=== PATIENT | male | born 1975 | race Caucasian/White ===

== ENCOUNTER 2025-06-26 12:45 | Emergency (ER) | payer BC, SELFPAY ==
--- NOTE | 2025-06-26 12:52 | EKG_ITS ---
[facility] Test Date: 2025-06-26 Pat Name: SHERRI MARISCAL Department: Room: - Gender: Male [employer]: : 1975 Requested By: Tierney Anne Order Number: [id number] Reading MD: Tierney Anne Measurements Intervals [place] Rate: 123 P: 57 DE: 125 QRS: -23 QRSD: 90 T: 56 QT: 304 QTc: 436 Interpretive Statements SINUS TACHYCARDIA BORDERLINE LEFT AXIS DEVIATION [QRS AXIS < -20] POSSIBLE RIGHT VENTRICULAR CONDUCTION DELAY [RSR (QR) IN V1/V2] ABNORMAL RHYTHM ECG Compared to ECG 09/19/2023 22:09:28 No significant changes /store/S0/[id number].pdf
[2025-06-26 12:56] VITALS: BP 129/80; PULSE 121; RESP 19; TEMP 36.6; O2SAT 96
--- NOTE | 2025-06-26 13:08 | EDNOTE_ITS ---
<Statement entered by Tiereny Flores MD - 06/26/25 16:19> As co-signing physician, I was present and available for consult prn. I concur with the plan and care as documented by the midlevel provider. ED Arrhythmia Palp. RME/HPI General Chief Complaint: Arrhythmia/Palpitations Stated Complaint: Withdrawing ETOH, palpitations and SOB Time Seen by Provider: 06/26/25 13:08 Source: patient Arrival date/time: 06/26/25 12:45 Mode of arrival: ambulatory Limitations: no limitations RME / HPI RME / HPI narrative: 50-year-old male who tells me that he had been binging on alcohol and then suddenly stopped yesterday and developed nausea with vomiting. Denies abdominal pain. Shows concern for rapid heart rate as well as sweating. MD complaint: rapid heart beat and heart racing Onset (ago): day(s) (2 days) Duration: constant Severity: moderate Context: occurred during rest Related Data Previous Rx's ?Medication ?Instructions ?Recorded meclizine 50 mg tablet 50 mg PO BID PRN dizziness # 20 tabs 05/07/23 cephalexin 500 mg tablet 500 mg PO TID #21 tabs 06/29 chlordiazepoxide HCl 25 mg capsule 25 mg PO BID #14 ca ps 06/29/23 cephalexin 500 mg capsule 500 mg PO Q8H #21 caps 06/26 Allergies Allergy/AdvReac Type Severity Reaction Status Date / Time No Known Allergies Allergy Verified 06/26/25 12:50 Review of Systems Constitutional Constitutional: Reports system reviewed and no additional complaints, except as documented Eyes Eyes: Reports system reviewed and no additional complaints, except as documented, Denies dry eyes, Denies exophthalmos and Reports floaters Cardiovascular Cardiovascular: Denies chest pain with activity and Denies claudication ED Exam General Limitations: Present no limitations General appearance: Present alert and in no apparent distress Head Head exam: Present atraumatic Eye Eye exam: Present normal appearance and EOMI ENT ENT exam: Present normal exam, normal oropharynx and mucous membranes moist Neck Neck exam: Present normal inspection, full ROM and trachea midline Chest Chest inspection: Present normal inspection and symmetric chest wall rise Respiratory Respiratory exam: Present normal lung sounds bilaterally Cardiovascular Cardiovascular exam: Present regular rate, normal rhythm and normal heart sounds Abdominal Exam Abdominal exam: Present soft and normal bowel sounds Extremities Exam Extremities exam: Present normal inspection and full ROM Back Exam Back exam: Present normal inspection and full ROM Neurological Exam Neurological exam: Present alert and oriented X3 Psychiatric Psychiatric exam: Present normal affect and normal mood Skin Skin exam: Present warm, dry, intact and normal color Course Course Course Narrative: EtOH level, CBC, CMP, drug screen, UA, normal saline and multivitamins. Quality Measures none (NA) Orders Category Date Time Status EKG (ED ONLY) *Do not use* NOW Care 06/26/25 12:52 Completed EKG (ED Only) Stat Exams 06/26/25 12:52 Draft Reevaluation(s) Reevaluation #1: NA Vital Signs Vital signs: Vital Signs Temperature 97.9 F 06/26/25 12:56 Pulse Rate 121 H 06/26/25 12:56 Respiratory Rate 19 06/26/25 12:56 Blood Pressure 129/80 06/26/25 12:56 Pulse Oximetry (%) 96 06/26/25 12:56 Oxygen Delivery Method Room Air 06/26/25 12:56 Pulse ox room air 96% Arrhythmia/Palpitations MDM Narrative MDM Narrative:: Patient's heart rate is hovering around 80-84 and came down significantly from 120-125 bpm. Patient does feel better. Labs returned essentially negative. Patient still has some EtOH in his system. No complaints of a burning sensation of upon swallowing and this is in his throat. Patient data External records reviewed:: Other (specify) (NA) Clinical information provided by:: none (NA) Social determinants that could affect healthcare access:: none (NA) Patient has the following chronic illnesses:: NA How is presenting disease/condition affected by chronic disease/condition?: caused by (ETOH) Evaluation data The following diagnostics were reviewed and interpreted by me:: lab results (Labs are white and then are normal limits with the exception of EtOH) Lab and/or radiology exams considered but not ordered:: NA Interpretation Summary: NA Medications / Prescriptions Medications or Prescriptions considered but not ordered:: NA Medication administrations:: Zofran 4 mg IV normal saline with multivitamins IV. Consultations Consultation(s) initiated? (list below): No Diagnosis Differential diagnosis arrhythmia/palpitations: palpitations, anxiety, sinus tachycardia, ventricular premature beats and supraventricular tachycardia Most likely diagnosis given after review of the tests above:: NA Admission Indicated Admission indicated?: not indicated Explain why admission is indicated or not indicated:: NA Admission Request Was there a request for admission?: No Disposition Plan Disposition Plan: Discharge Discharge Attestation Discharge Attestation: The patient and all family members were given an opportunity to ask questions and understood the discharge instructions. Discharge instructions specifically effects, indications for sooner follow up or return to the emergency department, and the expected course of current diagnosis. Patient condition: Stable Discharge Plan Plan Patient Disposition: HOME (Self Care) Discharge Disposition comment: Patient discharged in no apparent distress Patient condition on transfer: Stable Prescriptions/Referrals Prescriptions/Med Rec: New cephalexin 500 mg capsule 500 mg PO Q8H Qty: 21 0RF No Action chlordiazepoxide HCl 25 mg capsule 25 mg PO BID Qty: 14 0RF cephalexin 500 mg tablet 500 mg PO TID Qty: 21 0RF meclizine 50 mg tablet 50 mg PO BID PRN (Reason: dizziness) Qty: 20 0RF Referrals: Crow Dai MD [Primary Care Provider] - In 1 week Problem List Clinical Impression: Palpitations, Acute UTI Patient/Caregiver Discharge Instructions Discharge Activity: activity as tolerated Print Language: [place] Stand Alone Forms: Maame Award Info., Patient Portal Info Letter PA/INTERIOR BLOCK WIRER Supervising Physician PA/INTERIOR BLOCK WIRER Supervising Physician: SHERIE
[2025-06-26 13:17] VITALS: BP 140/98; PULSE 104; RESP 18; TEMP 37.1; O2SAT 95
[2025-06-26] MEDS: ONDANSETRON INJ 2 MG/ML INJ 2 ML 4 MG IVP (13:41)
[2025-06-26] MEDS: MULTIVITAMIN INJ 10 ML in SODIUM CHLORIDE 0.9% 1000 ML 1,000 ML 999 ML IV (13:41)
[2025-06-26 13:48] LABS: Collection Type, Urine Clean Catch
[2025-06-26 13:49] VITALS: BMI 34.7
[2025-06-26 14:00] LABS: Amphetamine/Methamp Scrn,U Negative (Negative); Barbiturate Screen,Urine Negative (Negative); Benzodiazepines Screen,Urine Negative (Negative); Benzoylecgonine Screen, Ur Negative (Negative); Fentanyl Screen,Urine Negative (Negative); Opiate Screen,Urine Negative (Negative); THC Screen,Urine Negative (Negative)
[2025-06-26 14:06] LABS: Bilirubin,Urine Negative (Negative); Blood,Urine 2+ (Negative); Clarity,Urine Clear (Clear/Hazy); Color,Urine Yellow (Lt Yel-Yel); Glucose, Urine Negative (Negative); Ketones,Urine 2+ (Negative); Leukocyte Esterase,Urine Negative (Negative); Nitrite,Urine Negative (Negative); PH,Urine 6.0 (5.0-7.0); Protein,Urine 2+ (Neg - Trace); RBC,Urine 23 /hpf (0-3); Specific Gravity,Urine 1.031 (1.001-1.035); Squamous Epithelial Cell,Urine 3 /hpf (0-5); Urobilinogen,Urine Negative mg/dL (0.0-1.0); WBC,Urine 11 /hpf (0-5)
[2025-06-26 14:20] LABS: Basophils # (Auto) 0.0 Thou/mm3 (0.0-0.2); Basophils % (Auto) 0 % (0-2.5); Eosinophils # (Auto) 0.1 Thou/mm3 (0.0-0.5); Eosinophils % (Auto) 1 % (0-10); Hematocrit 47.2 % (41.0-53.0); Hemoglobin 15.9 g/dL (13.5-16.0); Immature Granulocytes Auto 0.03 Thou/mm3 (0.00-0.00); Lymphocytes # (Auto) 2.5 Thou/mm3 (1.0-4.8); Lymphocytes % (Auto) 24 % (10-50); Mean Corpuscular HGB Conc 33.7 g/dl (31.0-37.0); Mean Corpuscular Hemoglobin 29.3 pg (25.0-35.0); Mean Corpuscular Volume 87 fL (80-100); Monocytes # (Auto) 0.8 Thou/mm3 (0.0-0.8); Monocytes % (Auto) 7 % (0-12); Neutrophils # (Auto) 7.0 Thou/mm3 (1.8-7.7); Neutrophils % (Auto) 67 % (37-80); Nucleated Red Blood Cell # 0.00 Thou/mm3 (0.00-0.00); Nucleated Red Blood Cell % 0 /100 WBC (0); Platelet Count 274 Thou/mm3 (140-440); RDW Standard Deviation 39.1 fL (35.1-43.9); Red Blood Count 5.42 Miln/mm3 (4.50-5.90); White Blood Count 10.4 Thou/mm3 (3.8-10.6)
[2025-06-26 14:30] VITALS: BP 146/93; PULSE 102; RESP 17; TEMP 37.3; O2SAT 97
[2025-06-26 14:40] LABS: Alanine Aminotransferase 24 U/L (10-49); Albumin, Serum 4.4 gm/dL (3.5-5.0); Albumin/Globulin Ratio 1.3 (1.2-2.2); Alcohol, Blood Medical 118.5 mg/dL (0-10.0); Alkaline Phosphatase 76 U/L (46-116); Anion Gap 19 (7-16); Aspartate Amino Transferase 14 U/L (0-34); BUN/Creatinine Ratio 9 Ratio (12-20); Bilirubin,Total 1.0 mg/dL (0.3-1.2); Blood Urea Nitrogen 9 mg/dL (9-23); Calcium 9.0 mg/dL (8.3-10.6); Calcium (Corrected) 9.0 mg/dL (8.5-10.1); Carbon Dioxide 21.3 mMol/L (20.0-31.0); Chloride 98 mMol/L (98-107); Creatinine (Component) 1.0 mg/dL (0.6-1.3); Estimated Creatinine Clearance 121.5 mL/min (>60); Globulin 3.4 gm/dL (2.3-3.5); Glucose 100 mg/dL (74-106); LDH (Lactate Dehydrogenase) 248 U/L (120-246); Lipase 28 U/L (12-53); Magnesium 1.9 mg/dL (1.6-2.6); Osmolality,Calculated 274 (275-295); Potassium 3.8 mMol/L (3.4-5.1); Sodium 138 mMol/L (136-145); Total Protein 7.8 gm/dL (5.7-8.2); eGFR > 60 See Note
[2025-06-26 15:59] VITALS: BP 127/67; PULSE 90; RESP 17; TEMP 37; O2SAT 95
== END 2025-06-26 17:39 | disposition home or self-care (01) ==
PROVIDERS: Physician Assistant; Emergency Provider Emergency Medicine; PCP Family Medicine
DX: N39.0 Urinary tract infection, site not specified (principal); R00.2 Palpitations; R00.0 Tachycardia, unspecified
CPT/HCPCS: 36415; 80053; 80307; 80320; 81001; 83615; 83690; 83735; 85025; 93005; 96365; 96366; 96375; 99283; J2405; J7030; G0480